=== PATIENT | male | born 2000 | race Caucasian/White ===

== ENCOUNTER 2020-06-06 13:02 | Emergency (ER) | payer OTHER ==
[~2020-06-06] VITALS: Ht 165.1 cm; Wt 57.2 kg
[2020-06-06 13:20] VITALS: Ht 165.1 cm; Wt 57.2 kg
[2020-06-06 14:43] VITALS: BP 122/62
== END 2020-06-06 14:45 | disposition home or self-care (01) ==
LOC: ED 13:02
DX: G44.209 Tension-type headache, unspecified, not intractable (principal)

== ENCOUNTER 2020-09-11 10:30 | Emergency (ER) | payer OTHER, SELFPAY ==
[~2020-09-11] VITALS: Ht 165.1 cm; Wt 53.5 kg
[2020-09-11 10:36] VITALS: Ht 165.1 cm; Wt 53.5 kg
[2020-09-11 11:22] LABS: BASOPHIL % 0.6 % (0.2-1.5); PLATELET COUNT 262 x10^3mcL (152-348); RED CELL DISTRIBUTION WIDTH 12.6 % (12.1-16.2)
[2020-09-11 11:39] LABS: CALCIUM 10.2 mg/dL (8.5-10.1); CARBON DIOXIDE 26.3 mmol/L (21-32); CHLORIDE SERUM 102 mmol/L (98-107); GFR1 > 60 mL/min; GLUCOSE SERUM 77 mg/dL (74-106); POTASSIUM SERUM 3.8 mmol/L (3.5-5.1); SODIUM SERUM 141 mmol/L (136-145)
[2020-09-11 11:52] LABS: ALBUMIN 4.8 g/dL (3.4-5.0); ALKALINE PHOSPHATASE 92 U/L (46-116); ALT/SGPT 22 U/L (16-63); AST/SGOT 22 U/L (15-37); BILIRUBIN TOTAL 0.7 mg/dL (0.20-1.00); TOTAL PROTEIN, SERUM 9.1 g/dL (6.4-8.2)
[2020-09-11 11:53] LABS: T4(THYROXINE) 4.1 ug/dL (4.7-13.3)
[2020-09-11 13:44] LABS: microscopic required? NO
[2020-09-11 13:59] LABS: UA SPECIFIC GRAVITY <=1.005 (1.005-1.035); urine erythrocyte NEGATIVE (NEGATIVE)
[2020-09-11 14:11] VITALS: BP 117/78
== END 2020-09-11 14:11 | disposition home or self-care (01) ==
LOC: ED 10:30
PROVIDERS: Emergency Medicine
DX: R19.7 Diarrhea, unspecified (principal); F41.9 Anxiety disorder, unspecified; E03.9 Hypothyroidism, unspecified; R63.4 Abnormal weight loss
CPT/HCPCS: 87046; 87046-59